=== PATIENT | male | born 1950 | race Caucasian/White ===

== ENCOUNTER 2018-01-10 | Emergency (ER) | payer MEDICARE, OTHER ==
[~2018-01-10] VITALS: Ht 177.8 cm; Wt 68.0 kg
[2018-01-10 00:03] VITALS: BP 116/83
== END 2018-01-10 00:58 | disposition home or self-care (01) ==
LOC: ED 00:51
DX: I48.0 Paroxysmal atrial fibrillation (principal)
CPT/HCPCS: 93005; 99283